=== PATIENT | male | born 1975 | race Caucasian/White ===

== ENCOUNTER 2021-01-16 17:12 | Inpatient (IN) | payer OTHER ==
[~2021-01-16] VITALS: Ht 182.9 cm; Wt 108.2 kg
[~2021-01-16 17:12] MED LIST: BENTYL 20MG TAB20 MG PO; LODINE CAP 300300 MG PO; ZOFRAN ODT 4 MG4 MG PO
[2021-01-16 19:35] LABS: HEMOGLOBIN 16.3 gm/dl (14.0-17.5); RED BLOOD COUNT 4.88 M/UL (4.20-5.50); WHITE BLOOD COUNT 27.5 K/UL (4.5-11.0)
[2021-01-16 19:51] LABS: BUN/CREATININE RATIO 9 (0-10)
[2021-01-17 04:15] LABS: HEMOGLOBIN 16.1 gm/dl (14.0-17.5); RED BLOOD COUNT 4.91 M/UL (4.20-5.50)
[2021-01-17 04:28] LABS: WHITE BLOOD COUNT 19.6 K/UL (4.5-11.0)
[2021-01-17 06:35] LABS: BUN/CREATININE RATIO 13 (0-10)
[2021-01-17 07:50] LABS: HEMOGLOBIN 14.7 gm/dl (14.0-17.5)
[2021-01-17 07:54] LABS: RED BLOOD COUNT 4.36 M/UL (4.20-5.50); WHITE BLOOD COUNT 25.1 K/UL (4.5-11.0)
[2021-01-18 00:52] LABS: ACINETOBACTER BAUMANNII Not Detected (Negative); CANDIDA ALBICANS Not Detected (Negative); CANDIDA KRUSEI Not Detected (Negative); CANDIDA TROPICALIS Not Detected (Negative); ENTEROCOCCUS Not Detected (Negative); ESCHERICHIA COLI Not Detected (Negative); HAEMOPHILUS INFLUENZAE Not Detected (Negative); KLEBSIELLA OXYTOCA Not Detected (Negative); KLEBSIELLA PNEUMONIAE Not Detected (Negative); KPC-CARBAPENEM-RESISTANCE GENE Not Detected (Negative); PROTEUS Not Detected (Negative); PSEUDOMONAS AERUGINOSA Not Detected (Negative); SERRATIA MARCESANS Not Detected (Negative); STAPHYLOCOCCUS AUREUS Not Detected (Negative); STREP AGALACTIAE (GROUP B) Not Detected (Negative); STREP PYOGENES (GROUP A) Not Detected (Negative); STREPTOCOCCUS Not Detected (Negative); mecA (METHICILLIN RESIST GENE Not Detected (Negative); vanA/B (VANCOMYCIN RESIST GENE Not Detected (Negative)
[2021-01-18 02:06] LABS: STAPHYLOCOCCUS DETECTED (Negative)
[2021-01-18 08:51] LABS: HEMOGLOBIN 13.1 gm/dl (14.0-17.5); RED BLOOD COUNT 4.01 M/UL (4.20-5.50)
[2021-01-18 09:07] LABS: WHITE BLOOD COUNT 13.8 K/UL (4.5-11.0)
[2021-01-18 09:12] LABS: BUN/CREATININE RATIO 12 (0-10)
[2021-01-19 03:21] LABS: BUN/CREATININE RATIO 12 (0-10)
[2021-01-19 08:31] LABS: HEMOGLOBIN 12.6 gm/dl (14.0-17.5); RED BLOOD COUNT 3.89 M/UL (4.20-5.50); WHITE BLOOD COUNT 10.7 K/UL (4.5-11.0)
[2021-01-20 05:28] LABS: BUN/CREATININE RATIO 10 (0-10)
[2021-01-20 10:02] LABS: HEMOGLOBIN 11.6 gm/dl (14.0-17.5); RED BLOOD COUNT 3.58 M/UL (4.20-5.50); WHITE BLOOD COUNT 10.5 K/UL (4.5-11.0)
[2021-01-21 09:41] LABS: HEMOGLOBIN 9.8 gm/dl (14.0-17.5); WHITE BLOOD COUNT 10.8 K/UL (4.5-11.0)
[2021-01-21 09:42] LABS: RED BLOOD COUNT 3.08 M/UL (4.20-5.50)
[2021-01-21 10:01] LABS: BUN/CREATININE RATIO 9 (0-10)
[2021-01-22 09:00] LABS: HEMOGLOBIN 7.1 gm/dl (14.0-17.5); RED BLOOD COUNT 2.2 M/UL (4.20-5.50)
[2021-01-22 09:21] LABS: BUN/CREATININE RATIO 12 (0-10)
--- NOTE | 2021-01-22 18:36 | NUR ---
1115 DRESSING FROM LOWER ABD AND LEFT GROIN AREAS REMOVED. PACKING REMOVED FROM LEFT GROIN AND ABD FOLD. LARGE BLOOD CLOT NOTED ON RIGHT PUBIC AREA FROM DRAINING BLOOD. PT ASSISTED TO SHOWER. 1200 DRAIN SPONGES PLACED AROUND PINROSE DRAINS. ABD PADS PLACED IN FOLDS AND ON TOP OF DRAINS. MESH UNDERWEAR PLACED ON PT TO HOLD DRESSING IN PLACE. 1730 DRAINAGE FROM WOUNDS STILL PRESENT BUT NOT LARGE. PT DENIES NEEDS AT PRESENT.
[2021-01-23 06:10] LABS: HEMOGLOBIN 8.8 gm/dl (14.0-17.5)
[2021-01-23 06:52] LABS: BUN/CREATININE RATIO 11 (0-10)
[2021-01-23 07:00] LABS: RED BLOOD COUNT 2.77 M/UL (4.20-5.50)
[2021-01-24 09:08] LABS: HEMOGLOBIN 9.8 gm/dl (14.0-17.5); WHITE BLOOD COUNT 21.9 K/UL (4.5-11.0)
[2021-01-24 09:11] LABS: RED BLOOD COUNT 3.09 M/UL (4.20-5.50)
[2021-01-24 09:23] LABS: BUN/CREATININE RATIO 10 (0-10)
[2021-01-25 06:59] LABS: RED BLOOD COUNT 2.9 M/UL (4.20-5.50)
[2021-01-25 07:02] LABS: WHITE BLOOD COUNT 16.1 K/UL (4.5-11.0)
[2021-01-25 07:36] LABS: BUN/CREATININE RATIO 14 (0-10)
[2021-01-25] MEDS ORDERED: AMOX TR-K CLV1 EAC4 PO (13:57)
[2021-01-25] MEDS ORDERED: DIFLUCAN 100 M100 MG PO (13:57)
[2021-01-25] MEDS ORDERED: METFORMIN HCL500 MG PO (13:57)
[2021-01-25] MEDS ORDERED: LOTRIMIN CREAM15 GM TOP (13:57)
[2021-01-25] MEDS ORDERED: EASY TOUCH MC (14:34)
[2021-01-25] MEDS ORDERED: NOVOLOG MI100 UNIT/1 SC (14:34)
[2021-01-25] MEDS ORDERED: GLUCOSE TEST S1 EACH MC (14:34)
[2021-01-25] MEDS ORDERED: [UNRECOGNIZED DRUG - SUPPLY] MC (14:34)
[2021-01-25] MEDS ORDERED: GLUCOPHAGE 850850 MG PO (14:34)
[2021-01-25] MEDS ORDERED: ACCU-CHEK GUID1 EAC3 MC (14:34)
--- NOTE | 2021-01-25 14:41 | NUR ---
01/25/21 0030 REPORT CALLED TO PAMELA AT [facility] AT [phone]
== END 2021-01-25 15:40 | disposition home health service (06) | DRG 853 ==
LOC: ER1 17:12 → CDU 21:24 → MED SURG 4 22:23 → CDU 22:23 → MED SURG 4 01-17 01:02
PROVIDERS: Internal Medicine; Internal Medicine Infectious Disease; Internal Medicine Nephrology; Physician Assistant; ADMIT Surgery
PROC: 0VB50ZZ Excision of Scrotum, Open Approach (ICD-10-PCS; principal; 2021-01-16 23:20)
PROC: 0HDAXZZ Extraction of Inguinal Skin, External Approach (ICD-10-PCS; 2021-01-18)
PROC: 0HDAXZZ Extraction of Inguinal Skin, External Approach (ICD-10-PCS; 2021-01-19)
PROC: B24BZZZ Ultrasonography of Heart with Aorta (ICD-10-PCS; 2021-01-20)
PROC: 30233N1 Transfusion of Nonautologous Red Blood Cells into Peripheral Vein, Percutaneous Approach (ICD-10-PCS; 2021-01-22)
DX: A41.9 Sepsis, unspecified organism (principal); A48.0 Gas gangrene; E11.52 Type 2 diabetes mellitus with diabetic peripheral angiopathy with gangrene; E87.1 Hypo-osmolality and hyponatremia; L02.214 Cutaneous abscess of groin; D62 Acute posthemorrhagic anemia; Z20.822 Contact with and (suspected) exposure to COVID-19; N49.3 Fournier gangrene; I08.2 Rheumatic disorders of both aortic and tricuspid valves; E87.6 Hypokalemia; E66.01 Morbid (severe) obesity due to excess calories; F17.210 Nicotine dependence, cigarettes, uncomplicated; J98.2 Interstitial emphysema; E11.65 Type 2 diabetes mellitus with hyperglycemia; I10 Essential (primary) hypertension; M10.9 Gout, unspecified; Z80.1 Family history of malignant neoplasm of trachea, bronchus and lung; Z82.49 Family history of ischemic heart disease and other diseases of the circulatory system; Z98.890 Other specified postprocedural states; Z83.3 Family history of diabetes mellitus; Z68.32 Body mass index [BMI] 32.0-32.9, adult
CPT/HCPCS: ECHO; 36415; 36430; 73130; 76870; 80048; 80053; 80202; 81001; 82436; 82533; 82962; 83036; 83605; 83690; 83735; 83935; 84133; 84295; 84300; 84443; 85025; 85027; 85652; 86140; 86141; 86850; 86900; 86901; 86920; 87040; 87070; 87077; 87150; 87186; 87205; 93005; 93306; 96374; 96375; 97161; 99284; G0378; J0295; J1100; J1170; J1650; J2001; J2250; J2270; J2405; J2543; J2550; J2704; J2710; J3010; J3370; J7030; J7050; J7060; J7070; J7120; P9016; Q9967; U0002